=== PATIENT | female | born 1950 | race Caucasian/White ===

== ENCOUNTER → 2016-12-21 17:13 | Outpatient (CLI) | payer BC ==
[2010-07-18 07:06] VITALS: BMI 47.5
== END | disposition home or self-care (01) ==
LOC: D.RAD 17:13
DX: M25.561 Pain in right knee (principal); M25.562 Pain in left knee

== ENCOUNTER → 2018-01-25 20:24 | Outpatient (CLI) | payer BC ==
[2010-07-18 07:06] VITALS: BMI 47.5
== END | disposition home or self-care (01) ==
LOC: D.MAMMO 12-29 15:45
DX: Z12.31 Encounter for screening mammogram for malignant neoplasm of breast (principal)

== ENCOUNTER 2019-03-22 10:00 | Outpatient (CLI) | payer BC ==
[2010-07-18 07:06] VITALS: BMI 47.5
== END 2019-03-22 10:30 | disposition home or self-care (01) ==
LOC: D.MAMMO 10:00
PROVIDERS: ATTEND Family Medicine
DX: Z12.31 Encounter for screening mammogram for malignant neoplasm of breast (principal)